=== PATIENT | female | born 1950 | race Caucasian/White ===

== ENCOUNTER → 2017-07-20 | Day surgery (SDC) | payer OTHER ==
[~2017-07-20] MED LIST: LACTATED RINGER'S 1000 ML INJ 1,000 ML ONE; PROPOFOL 500 MG/50 ML BTL IV ONE
--- NOTE | 2017-07-20 11:46 | GIPROC ---
[facility] [address] [facility], [address] COLONOSCOPY PROCEDURE REPORT EXAM DATE: 07/20/2017 PATIENT NAME: Dawn Bernal MR #: [id number] BIRTHDATE: 1950 ENDOSCOPIST: Tad Esquivel MD ORDER #: [id number] CERTIFIED ORTHOTIST: STATUS: outpatient INDICATIONS: The patient is a 66 yr old female here for a colonoscopy due to screening; average risk PROCEDURE PERFORMED: colonoscopy with polypectomies MEDICATIONS: Per Anesthesia. PREP QUALITY: good ESTIMATED BLOOD LOSS: None CONSENT: The patient understands the risks and benefits of the procedure and understands that these risks include, but are not limited to: sedation, allergic reaction, infection, perforation and/or bleeding. Alternative means of evaluation and treatment include, among others: physical exam, x-rays, and/or surgical intervention. The patient elects to proceed with this endoscopic procedure. medical equipment was checked for proper function. Hand hygiene and appropriate measures for infection prevention was taken. After the risks, benefits and alternatives of the procedure were thoroughly explained, Informed consent was verified, confirmed and timeout was successfully executed by the treatment team. A digital exam was performed The EC-[id number] ([id number]) endoscope was introduced through the anus and advanced through a vey tortuous colon to the cecum, which was identified by both the appendix and ileocecal valve. The instrument was then slowly withdrawn as the colon was fully examined. A 3mm polyp was removed from the ascending colon with snare cautery but was not retrieved. Two 6mm sigmoid polyps were removed with snare cautery and were retrieved. Marked skgmoid diverticulosis was noted. Retroflexion was performed The scope was then completely withdrawn from the patient and the procedure terminated. ADVERSE EVENTS: There were no complications. IMPRESSIONS: as above RECOMMENDATIONS: 1. High fiber diet 2. Await biopsy results. Biopsy results will not be ready for 7-10 days. If you don't hear from us in two weeks, call our office for results. RECALL: Basedn polyp histology, but likely five years. Tad Esquivel MD eSigned: Tad Esquivel MD 07/20/2017 11:45 AM cc: Hilary PATIENT NAME: Dawn Bernal MR#: [id number]
--- NOTE | 2017-07-20 11:46 | GIPROC ---
[facility] [address] [facility], [address] COLONOSCOPY PROCEDURE REPORT EXAM DATE: 07/20/2017 PATIENT NAME: Dawn Bernal MR #: [id number] BIRTHDATE: 1950 ENDOSCOPIST: Tad Esquivel MD ORDER #: [id number] FITNESS WORKER: STATUS: outpatient INDICATIONS: The patient is a 66 yr old female here for a colonoscopy due to screening; average risk PROCEDURE PERFORMED: colonoscopy with polypectomies MEDICATIONS: Per Anesthesia. PREP QUALITY: good ESTIMATED BLOOD LOSS: None CONSENT: The patient understands the risks and benefits of the procedure and understands that these risks include, but are not limited to: sedation, allergic reaction, infection, perforation and/or bleeding. Alternative means of evaluation and treatment include, among others: physical exam, x-rays, and/or surgical intervention. The patient elects to proceed with this endoscopic procedure. medical equipment was checked for proper function. Hand hygiene and appropriate measures for infection prevention was taken. After the risks, benefits and alternatives of the procedure were thoroughly explained, Informed consent was verified, confirmed and timeout was successfully executed by the treatment team. A digital exam was performed The EC-3890Li ([id number]) endoscope was introduced through the anus and advanced through a vey tortuous colon to the cecum, which was identified by both the appendix and ileocecal valve. The instrument was then slowly withdrawn as the colon was fully examined. A 3mm polyp was removed from the ascending colon with snare cautery but was not retrieved. Two 6mm sigmoid polyps were removed with snare cautery and were retrieved. Marked skgmoid diverticulosis was noted. Retroflexion was performed The scope was then completely withdrawn from the patient and the procedure terminated. ADVERSE EVENTS: There were no complications. IMPRESSIONS: as above RECOMMENDATIONS: 1. High fiber diet 2. Await biopsy results. Biopsy results will not be ready for 7-10 days. If you don't hear from us in two weeks, call our office for results. RECALL: Basedn polyp histology, but likely five years. Tad Esquivel MD eSigned: Tad Esquivel MD 07/20/2017 11:45 AM cc: Hilary PATIENT NAME: Dawn Bernal MR#: [id number]
--- NOTE | 2017-07-20 11:46 | GIPROC ---
[facility] [address] [facility], [address] COLONOSCOPY PROCEDURE REPORT EXAM DATE: 07/20/2017 PATIENT NAME: Dawn Bernal MR #: [id number] BIRTHDATE: 1950 ENDOSCOPIST: Tad Esquivel MD ORDER #: [id number] BRANCH LENDING OFFICER: STATUS: outpatient INDICATIONS: The patient is a 66 yr old female here for a colonoscopy due to screening; average risk PROCEDURE PERFORMED: colonoscopy with polypectomies MEDICATIONS: Per Anesthesia. PREP QUALITY: good ESTIMATED BLOOD LOSS: None CONSENT: The patient understands the risks and benefits of the procedure and understands that these risks include, but are not limited to: sedation, allergic reaction, infection, perforation and/or bleeding. Alternative means of evaluation and treatment include, among others: physical exam, x-rays, and/or surgical intervention. The patient elects to proceed with this endoscopic procedure. medical equipment was checked for proper function. Hand hygiene and appropriate measures for infection prevention was taken. After the risks, benefits and alternatives of the procedure were thoroughly explained, Informed consent was verified, confirmed and timeout was successfully executed by the treatment team. A digital exam was performed The EC-[id number] ([id number]) endoscope was introduced through the anus and advanced through a vey tortuous colon to the cecum, which was identified by both the appendix and ileocecal valve. The instrument was then slowly withdrawn as the colon was fully examined. A 3mm polyp was removed from the ascending colon with snare cautery but was not retrieved. Two 6mm sigmoid polyps were removed with snare cautery and were retrieved. Marked skgmoid diverticulosis was noted. Retroflexion was performed The scope was then completely withdrawn from the patient and the procedure terminated. ADVERSE EVENTS: There were no complications. IMPRESSIONS: as above RECOMMENDATIONS: 1. High fiber diet 2. Await biopsy results. Biopsy results will not be ready for 7-10 days. If you don't hear from us in two weeks, call our office for results. RECALL: Basedn polyp histology, but likely five years. Tad Esquivel MD eSigned: Tad Esquivel MD 07/20/2017 11:45 AM cc: Hilary PATIENT NAME: Dawn Bernal MR#: [id number]
== END | disposition home or self-care (01) ==
LOC: ESDC 09:51
DX: Z12.11 Encounter for screening for malignant neoplasm of colon (principal); D12.2 Benign neoplasm of ascending colon; D12.5 Benign neoplasm of sigmoid colon; K57.90 Diverticulosis of intestine, part unspecified, without perforation or abscess without bleeding
CPT/HCPCS: 00810; 45385; 88305; J7120